=== PATIENT | male | born 1950 | race Caucasian/White ===

== ENCOUNTER → 2016-12-03 | Outpatient (CLI) | payer MEDICARE ==
[2016-12-03 21:02] LABS: ANION GAP 12 (5-19); BLOOD UREA NITROGEN 37 mg/dL (7-20); CALCIUM 9.3 mg/dL (8.4-10.2); CARBON DIOXIDE 36 mmol/L (22-30); CHLORIDE 94 mmol/L (98-107); CREATININE RESULT 1.67 mg/dL (0.52-1.25); GLUCOSE 121 mg/dL (75-110); SODIUM 141.8 mmol/L (137-145)
[2016-12-03 21:24] LABS: POTASSIUM 4.4 mmol/L (3.6-5.0)
== END ==
LOC: LAB 20:33
PROVIDERS: ATTEND Physician Assistant Medical
DX: E87.6 Hypokalemia (principal)
CPT/HCPCS: 36415; 80048; 80053

== ENCOUNTER → 2018-04-12 | Outpatient (CLI) | payer MEDICARE, OTHER ==
--- NOTE | 2018-04-12 16:16 | RADIOLOGY REPORT (SQ) ---
EXAM DESCRIPTION: MRA NECK WITHOUT COMPLETED DATE/TIME: 04/12/2018 3:44 pm REASON FOR STUDY: OCCLUSION AND STENOSIS OF LEFT CAROTID ARTERY I65.22 OCCLUSION AND STENOSIS OF LE FT CAROTID ARTERY COMPARISON: CT brain 07/23/2015 TECHNIQUE: Axial 2-D volume acquisition imaging through the extracranial carotid and vertebral arter ies with reformatting using 3-D MIPS. LIMITATIONS: Mild motion artifact FINDINGS: Flow is identified in the aortic arch, right brachiocephalic artery, right common carotid artery, right carotid bifurcation, right cervical internal carotid artery without evidence of flow si gnificant stenosis. There is flow in the right ICA at the skullbase and paraclinoid regions. Intrac ranial circulation not completely demonstrated. On the left side, there is flow signal in the common carotid artery up to the carotid bifurcation. A t the bifurcation, there is a short segment of flow signal dropout of the proximal left ICA, and limi michael flow signal throughout the remainder of the left cervical ICA and ICA at the skullbase. This sug gests greater than 80% stenosis proximal left ICA at the carotid bifurcation, with decreased flow in the left cervical and skullbase ICA. Right vertebral artery demonstrates flow from its origin at the subclavian artery through the cervica l vertebral artery and right distal intracranial vertebral artery/basilar artery. No focal stenosis. On the left side, no flow is identified in the proximal vertebral artery or throughout the cervical l eft vertebral artery. At the foramen magnum, flow signal is identified in the left vertebral artery likely retrograde from right vertebral artery flow. IMPRESSION: 80+ percent stenosis proximal left ICA at the carotid bifurcation is suggested by short segment of flow dropout. Correlation with carotid Doppler could be useful Left vertebral artery likely occluded at its origin with retrograde flow at the level of the foramen magnum. COMMENT: Quality ID #[id number]: Measurements of distal internal carotid diameter were used as the denomin ator for stenosis measurement. TECHNICAL DOCUMENTATION: JOB ID: [id number] [employer]- All Rights Reserved Reading location - IP/workstation name: [email or web address]
== END ==
LOC: RAD 14:40
PROVIDERS: ATTEND Physician Assistant Medical
DX: I65.22 Occlusion and stenosis of left carotid artery (principal)
CPT/HCPCS: 70547

== ENCOUNTER 2018-05-25 05:13 | Emergency (ER) | payer MEDICARE, OTHER ==
[2018-05-25] MEDS ORDERED: IPRATROPIUM/ALBUTEROL 0.5-2.5 MG/3 ML AMPUL NEB ONE (05:33)
--- NOTE | 2018-05-25 05:43 | ER Document Report ---
ED Respiratory Problem - General Chief Complaint: Shortness Of Breath Stated Complaint: DIFFICULTY BREATHING Time Seen by Provider: 05/25/18 05:31 Notes: Patient is a 67-year-old male presenting to the emergency room via EMS for shortness of breath. Patient is morbidly obese, walks around the house with a walker. Patient states he tripped on his walker and fell to the ground. Patient states the act of getting up off the floor made him short of breath and 911 was called. Patient denies chest pain, URI symptoms, fever, abdominal pain , vomiting. Patient states he had a left carotid stent placed on 05/19/2018. Patient states Thursday after that surgery he started with episodes of loose stool. Patient states he called [facility] to inform them of these loose stools, they informed him to call his primary care provider. Patient states he called his primary care provider who stated he may have an infection. And patient made an appointment to follow-up in the office. Patient denies weakness, dizziness, lightheadedness. States he just tripped over his walker. EMS gave 2 DuoNeb treatments and 125 mg of Solu-Medrol IV. EMS stated room air pulse ox was 94% upon arrival. Patient is currently on a DuoNeb treatment, SPO2 100%, respiratory rate of 18. Patient is talking in full sentences. Past medical history: COPD, hypertension, diabetes, sciatic nerve pain right. states sciatic nerve on the right side has decreased patient sensation in the right foot. This is why he walks around the house with a walker. Medications: Glipizide, baclofen, albuterol, OxyContin, Percocet, gabapentin, Lasix, lisinopril, metoprolol, Plavix, atorvastatin, nitroglycerin, Symbicort Allergies: Morphine, penicillin, bees TRAVEL OUTSIDE OF THE [place] IN LAST 30 DAYS: No - Related Data Allergies/Adverse Reactions: morphine [Morphine] Allergy (Verified 01/23/18 01:04) Penicillins Allergy (Verified 01/23/18 01:04) bee pollen Adverse Reaction (Verified 01/23/18 01:04) Past Medical History - General Information source: Patient - Social History Smoking Status: Former Smoker Lives with: Family Family History: Reviewed & Not Pertinent - Past Medical History Cardiac Medical History: Reports: Hx Heart Attack, Hx Hypercholesterolemia, Hx Hypertension Pulmonary Medical History: Reports: Hx COPD Endocrine Medical History: Reports: Hx Diabetes Mellitus Type 2 Renal/ Medical History: Denies: Hx Peritoneal Dialysis Musculoskeletal Medical History: Reports Hx Arthritis Psychiatric Medical History: Reports: Hx Depression Past Surgical History: Reports: Hx Appendectomy, Hx Cardiac Catheterization, Hx Cardiac Surgery - aoritic repair, bypass, Hx Orthopedic Surgery - back sx x7 Review of Systems - Review of Systems Constitutional: See HPI EENT: See HPI Cardiovascular: See HPI Respiratory: See HPI Gastrointestinal: See HPI Genitourinary: No symptoms reported Male Genitourinary: No symptoms reported Musculoskeletal: No symptoms reported Skin: No symptoms reported Hematologic/Lymphatic: No symptoms reported Neurological/Psychological: No symptoms reported Physical Exam - Vital signs Vitals: Pulse Ox 98 05/25/18 05:45 - Notes Notes: GENERAL: Alert, interacts well. No acute distress. Morbidly obese HEAD: Normocephalic, atraumatic. EYES: Pupils equal, round, and reactive to light. Extraocular movements intact. ENT: Oral mucosa moist, tongue midline. NECK: Full range of motion. Supple. Trachea midline. LUNGS: Diminished with scant expiratory wheezes all partida, No rales, or rhonchi. No respiratory distress. Speaking in full sentences. HEART: Regular rate and rhythm. No murmur ABDOMEN: Soft, non-tender. Non-distended. Bowel sounds present in all 4 quadrants. EXTREMITIES: Moves all 4 extremities spontaneously. No edema, normal radial and dorsalis pedis pulses bilaterally. No cyanosis. Strength 5 out of 5 bilateral upper extremities. Strength 1 out of 5 right lower extremity. Strength 5 out of 5 in left lower extremity. According to weakness in the right lower extremity is normal due to sciatic nerve pain. BACK: no cervical, thoracic, lumbar midline tenderness. NEUROLOGICAL: Alert and oriented x3. Normal speech. cranial nerves II through XII grossly intact. PSYCH: Normal affect, normal mood. SKIN: Warm, dry, normal turgor. No rashes or lesions noted. Course - Re-evaluation Re-evalutation: 05/25/18 06:53 Discussed with patient and at length about need for admission. Discussed chest x-ray results, leukocytosis and CMP results. Discussed kidney function at length with patient and . Patient adamantly refuses admission. Patient' s states she will not get an argument with him if he does not want to be admitted then he will not stay. Patient agreed to signing an AMA form. Told the patient by signing this form I am not responsible if he leaves this emergency room and dies. Patient verbalizes understanding. Patient signed AMA with myself and Jada WHITLEY in the room. Discussed case with Dr. Montaño who suggests IV Lasix and potassium replacement in the emergency department. Patient agrees to IV Lasix. States he does not want to be here if other treatments are going to take a long time. Discussed oral potassium replacements. Patient agrees to oral potassium replacements. Patient's verbalized that she will call the patient's primary care provider this morning. States they have also reached out to Dr. Craig who is the patient's scale and skip car operator to see if they can move his appointment up. Patient states he has an appointment with Dr. Craig the beginning of June. I again reiterated the fact that I feel the patient should be admitted to the hospital. Patient continues to decline admission. Patient is conscious alert and oriented x4. Patient's is also in the room. Patient's states she will bring the patient back to the hospital or call 911 should he start having shortness of breath again, develops chest pain, or any other worsening symptoms. Patient was unable to produce a stool sample in the emergency department. Discussed sending patient home with stool collection kit. Again states she will call the patient's primary care provider this morning, Dr. Pendleton. - Vital Signs Vital signs: Temp Pulse Resp BP Pulse Ox 98 05/25/18 05:45 - Laboratory Result Diagrams: 05/25/18 05:30 05/25/18 05:30 Laboratory results interpreted by me: 05/25/18 05/25/18 05/25/18 05:30 05:30 05:30 WBC 13.1 H RBC 3.39 L Hgb 10.5 L Hct 31.4 L RDW 15.5 H Band Neutrophils % 8 H Abs Neuts (Manual) 9.6 H Abs Monocytes (Manual) 1.6 H Sodium 131.8 L Potassium 3.5 L Chloride 93 L BUN 70 H Creatinine 2.51 H Est GFR ( Amer) 31 L Est GFR (Non-Af Amer) 26 L Glucose 187 H Direct Bilirubin 0.6 H ALT 19 L NT-Pro-B Natriuret Pep 2420 H Albumin 3.3 L Discharge - Discharge Clinical Impression: COPD exacerbation, Morbid obesity, Generalized weakness, Hypokalemia Congestive heart failure (CHF) Qualifiers: Heart failure type: unspecified Heart failure chronicity: unspecified Qualified Code(s): I50.9 - Heart failure, unspecified Condition: Fair Disposition: AGAINST MEDICAL ADVICE Instructions: Chronic Obstructive Lung Disease ([facility]) Additional Instructions: As we discussed I highly suggest that you stay in the emergency room for admission. You should make sure to follow-up with your primary care physician and your scale and skip car operator in the next 12-24 hours. Please return to the emergency room for returning shortness of breath, start of chest pain, or any other concerning symptoms. Referrals: NELY CRAIG MD [Primary Care Provider] - Follow up as needed
[2018-05-25 05:45] LABS: HEMATOCRIT 31.4 % (37.9-51.0); HEMOGLOBIN 10.5 g/dL (13.5-17.0); MEAN CORPUSCULAR HEMOGLOBIN 30.8 pg (27.0-33.4); MEAN CORPUSCULAR HGB CONC 33.3 g/dL (32.0-36.0); MEAN CORPUSCULAR VOLUME 92 fl (80-97); PLATELET COUNT 295 10^3/uL (150-450); RED BLOOD COUNT 3.39 10^6/uL (4.35-5.55); RED CELL DISTRIBUTION WIDTH 15.5 % (11.5-14.0); WHITE BLOOD COUNT 13.1 10^3/uL (4.0-10.5)
[2018-05-25 05:57] LABS: ALANINE AMINOTRANSFERASE 19 U/L (21-72); ALBUMIN 3.3 g/dL (3.5-5.0); ALKALINE PHOSPHATASE 73 U/L (38-126); ANION GAP 15 (5-19); ASPARTATE AMINO TRANSFERASE 29 U/L (17-59); BILIRUBIN,DIRECT 0.6 mg/dL (0.0-0.4); BLOOD UREA NITROGEN 70 mg/dL (7-20); CALCIUM 8.8 mg/dL (8.4-10.2); CARBON DIOXIDE 24 mmol/L (22-30); CHLORIDE 93 mmol/L (98-107); GLUCOSE 187 mg/dL (75-110); POTASSIUM 3.5 mmol/L (3.6-5.0); SODIUM 131.8 mmol/L (137-145); TOTAL PROTEIN 6.9 g/dL (6.3-8.2)
[2018-05-25 06:03] LABS: ABSOLUTE LYMPHOCYTES# (MANUAL) 1.8 10^3/uL (0.5-4.7); ABSOLUTE MONOCYTES # (MANUAL) 1.6 10^3/uL (0.1-1.4); ABSOLUTE NEUTROPHILS# (MANUAL) 9.6 10^3/uL (1.7-8.2); BAND NEUTROPHILS % (MANUAL) 8 % (3-5); BASOPHILS % (MANUAL) 1 % (0-2); EOSINOPHILS % (MANUAL) 0 % (0-6); LYMPHOCYTES % (MANUAL) 14 % (13-45); MONOCYTES % (MANUAL) 12 % (3-13); SEGMENTED NEUTROPHILS % (MAN) 65 % (42-78); TOTAL CELLS COUNTED 100
[2018-05-25 06:06] LABS: ANISOCYTOSIS SLIGHT; PLATELET COMMENT ADEQUATE; POLYCHROMASIA SLIGHT; TOXIC GRANULATION SLIGHT
--- NOTE | 2018-05-25 06:18 | RADIOLOGY REPORT (SQ) ---
CLINICAL HISTORY: SOB COMPARISON: None. TECHNIQUE: XR CHEST 1 VIEW 05/25/2018 5:33 AM CDT FINDINGS: Cardiac silhouette is enlarged. Lungs are clear without consolidation, atelectasis, mass or edema. There is small pleural effusions. There is no pneumothorax. There are no acute osseous findings. IMPRESSION: Bilateral pleural effusions
[2018-05-25 06:20] LABS: CREATINE KINASE MB 2.17 ng/mL (<4.55); TROPONIN I 0.031 ng/mL
[2018-05-25] MEDS ORDERED: FUROSEMIDE INJ/PF 40 MG/4 ML SDV IV ONE (06:59)
[2018-05-25] MEDS ORDERED: POTASSIUM CHLORIDE 10 MEQ CAPSULE.ER PO ONE (06:59)
[2018-05-25 07:37] VITALS: BP 119/32
--- NOTE | 2018-05-25 08:25 | EKG REPORT ---
SEVERITY:- ABNORMAL ECG - SINUS RHYTHM ATRIAL PREMATURE COMPLEX NONSPECIFIC INTRAVENTRICULAR CONDUCTION DELAY : Confirmed by: Johan Holland 25-May-2018 08:24:34
== END 2018-05-25 07:37 | disposition left against medical advice (07) ==
LOC: ER 05:13
DX: J44.1 Chronic obstructive pulmonary disease with (acute) exacerbation (principal); I11.0 Hypertensive heart disease with heart failure; I50.9 Heart failure, unspecified; E66.01 Morbid (severe) obesity due to excess calories; E87.6 Hypokalemia; M54.31 Sciatica, right side; R53.1 Weakness; R19.4 Change in bowel habit; E11.9 Type 2 diabetes mellitus without complications; Z79.891 Long term (current) use of opiate analgesic; Z79.899 Other long term (current) drug therapy; Z79.02 Long term (current) use of antithrombotics/antiplatelets; Z79.51 Long term (current) use of inhaled steroids; Z79.84 Long term (current) use of oral hypoglycemic drugs; Z88.5 Allergy status to narcotic agent; Z88.0 Allergy status to penicillin; Z91.030 Bee allergy status; Z87.891 Personal history of nicotine dependence; Z53.20 Procedure and treatment not carried out because of patient's decision for unspecified reasons
CPT/HCPCS: 93005; 94640; 99285; 96374; 36415; 82553; 82550; 85025; 80053; 84484; 83880; 71045; 93010; J1940; A9270 ×2; J7620

== ENCOUNTER 2018-05-29 13:17 | Emergency (ER) | payer MEDICARE, OTHER ==
[2018-05-29] MEDS ORDERED: FENTANYL CITRATE INJ/PF 100 MCG/2 ML AMPUL IV ONE (13:56)
[2018-05-29] MEDS ORDERED: NORMAL SALINE 1000 ML 1,000 ML IV ONE ×3 (13:56→18:42)
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
--- NOTE | 2018-05-29 14:23 | EKG REPORT ---
SEVERITY:- ABNORMAL ECG - SINUS TACHYCARDIA WITH APCs LEFT AXIS DEVIATION NONSPECIFIC T ABNORMALITIES, LATERAL LEADS BORDERLINE PROLONGED QT INTERVAL : Confirmed by: Johan Holland 29-May-2018 14:23:05
[2018-05-29 14:29] LABS: ABSOLUTE MONOCYTES (AUTO) 0.5 10^3/uL (0.1-1.4); ABSOLUTE NEUT (AUTO) 13.8 10^3/uL (1.7-8.2); BASOPHILS % (AUTO) 0.2 % (0-2); EOSINOPHILS % (AUTO) 0.2 % (0-6); HEMATOCRIT 36.8 % (37.9-51.0); HEMOGLOBIN 12.3 g/dL (13.5-17.0); LYMPHOCYTES % (AUTO) 6.8 % (13-45); MEAN CORPUSCULAR HEMOGLOBIN 30.4 pg (27.0-33.4); MEAN CORPUSCULAR HGB CONC 33.4 g/dL (32.0-36.0); MEAN CORPUSCULAR VOLUME 91 fl (80-97); MONOCYTES % (AUTO) 3.5 % (3-13); PLATELET COUNT 379 10^3/uL (150-450); RED BLOOD COUNT 4.04 10^6/uL (4.35-5.55); RED CELL DISTRIBUTION WIDTH 15.7 % (11.5-14.0); SEGMENTED NEUTROPHILS % (AUTO) 89.3 % (42-78); TOTAL CELLS COUNTED % (AUTO) 100 %; WHITE BLOOD COUNT 15.5 10^3/uL (4.0-10.5)
--- NOTE | 2018-05-29 14:45 | RADIOLOGY REPORT (SQ) ---
EXAM DESCRIPTION: CT ABD/PELVIS NO ORAL OR IV COMPLETED DATE/TIME: 05/29/2018 2:20 pm REASON FOR STUDY: rlq pain COMPARISON: 02/23/2015 TECHNIQUE: CT scan of the abdomen and pelvis performed without intravenous or oral contrast. Images reviewed with lung, soft tissue, and bone windows. Reconstructed coronal and sagittal MPR images revi ewed. All images stored on PACS. All CT scanners at this facility use dose modulation, iterative reconstruction, and/or weight based d osing when appropriate to reduce radiation dose to as low as reasonably achievable (ALARA). [facility]: Dose Right [facility]: CareDose [facility]: Dose Right [facility]: Teradose 4D [facility]: TransMedics RADIATION DOSE: CT Rad equipment meets quality standard of care and radiation dose reduction techniq ues were employed. CTDIvol: 26.4 mGy. DLP: 1497 mGy-cm.mGy. LIMITATIONS: None. FINDINGS: LOWER CHEST: No significant findings. No nodules or infiltrates. NON-CONTRASTED LIVER, SPLEEN, ADRENALS: Evaluation limited by lack of IV contrast. No identified sign ificant masses. PANCREAS: No masses. No peripancreatic inflammatory changes. GALLBLADDER: No identified stones by CT criteria. No inflammatory changes to suggest cholecystitis. RIGHT KIDNEY AND URETER: Atrophic left kidney. No suspicious masses. Assessment limited by lack of I V contrast. No significant calcifications. No hydronephrosis or hydroureter. LEFT KIDNEY AND URETER: No suspicious masses. Assessment limited by lack of IV contrast. No signifi cant calcifications. No hydronephrosis or hydroureter. AORTA AND RETROPERITONEUM: No aneurysm. Mild scattered calcified plaque. No retroperitoneal masses or adenopathy. BOWEL AND PERITONEAL CAVITY: Multiple supraumbilical hernias with the largest having a fascial defect measuring of 4.9 cm containing a short segment of transverse colon and fat. Additional supraumbilic al hernias contain fat. Transverse colon just proximal to the hernia is borderline dilated measuring 6.1 cm in transverse diameter. Ascending colon is nondilated. Colon distal to the hernia is nondil ated. Multiple minimally dilated loops of small bowel, multiple of which contain air-fluid levels. There are multiple foci of air within the anterior abdominal wall extending in to the hernia. No lui e fluid. APPENDIX: Surgically absent. PELVIS, BLADDER, AND ABDOMINAL WALL:No abnormal masses. No free fluid. Bladder normal. BONES: Laminectomies of L4. Degenerative disc disease of the lumbar spine. No acute osseous finding . OTHER: No other significant finding. IMPRESSION: 1. Supraumbilical hernia containing fat and transverse colon. Transverse colon proximal to the herni a is mildly dilated along with multiple minimally dilated loops of small bowel, consistent with obstr uction. 2. Small amount of free intraperitoneal air which extends into the hernia, consistent with perforated viscus. COMMENT: This report was called to BRIANDA NICKERSON DO at14:30 on 05/29/2018. Quality ID # [id number]: Final reports with documentation of one or more dose reduction techniques (e.g., Au tomated exposure control, adjustment of the mA and/or kV according to patient size, use of iterative reconstruction technique) TECHNICAL DOCUMENTATION: JOB ID: [id number] [employer]- All Rights Reserved Reading location - IP/workstation name: [email or web address]
[2018-05-29] MEDS ORDERED: ERTAPENEM SODIUM INJ 1 GM VIAL IV ONE (15:04)
--- NOTE | 2018-05-29 15:54 | RADIOLOGY REPORT (SQ) ---
EXAM DESCRIPTION: CHEST SINGLE VIEW COMPLETED DATE/TIME: 05/29/2018 3:42 pm REASON FOR STUDY: sob COMPARISON: Chest x-ray 05/25/2018. CT abdomen and pelvis 05/29/2018. EXAM PARAMETERS: NUMBER OF VIEWS: One view. TECHNIQUE: Single frontal radiographic view of the chest acquired. RADIATION DOSE: NA LIMITATIONS: None. FINDINGS: LUNGS AND PLEURA: No consolidation, pneumothorax or pleural effusion. MEDIASTINUM AND HILAR STRUCTURES: No masses. Contour normal. HEART AND VASCULAR STRUCTURES: Heart normal in size. Normal vasculature. BONES: No acute findings. HARDWARE: None in the chest. IMPRESSION: NO ACUTE RADIOGRAPHIC FINDING IN THE CHEST. TECHNICAL DOCUMENTATION: JOB ID: [id number] 2010 [employer]- All Rights Reserved Reading location - IP/workstation name: [email or web address]
[2018-05-29 16:09] LABS: INTERNATIONAL RATION (INR) 1.17; PROTHROMBIN TIME 15.5 SEC (11.4-15.4)
[2018-05-29 16:10] LABS: PARTIAL THROMBOPLASTIN TIME 25.8 SEC (23.5-35.8)
[2018-05-29 16:14] LABS: ALANINE AMINOTRANSFERASE 19 U/L (21-72); ALBUMIN 2.9 g/dL (3.5-5.0); ALKALINE PHOSPHATASE 91 U/L (38-126); ANION GAP 18 (5-19); ASPARTATE AMINO TRANSFERASE 15 U/L (17-59); BILIRUBIN,DIRECT 0.4 mg/dL (0.0-0.4); BILIRUBIN,TOTAL 0.9 mg/dL (0.2-1.3); BLOOD UREA NITROGEN 72 mg/dL (7-20); CALCIUM 8.1 mg/dL (8.4-10.2); CARBON DIOXIDE 21 mmol/L (22-30); CHLORIDE 96 mmol/L (98-107); GLUCOSE 196 mg/dL (75-110); POTASSIUM 3.3 mmol/L (3.6-5.0); SODIUM 134.7 mmol/L (137-145); TOTAL PROTEIN 6.3 g/dL (6.3-8.2)
[2018-05-29 16:43] LABS: APPEARANCE,URINE CLEAR; BILIRUBIN,URINE NEGATIVE (NEGATIVE); COLOR,URINE YELLOW; GLUCOSE, URINE NEGATIVE (NEGATIVE); KETONES,URINE NEGATIVE (NEGATIVE); LEUKOCYTE ESTERASE,URINE NEGATIVE (NEGATIVE); NITRITE,URINE NEGATIVE (NEGATIVE); PROTEIN,URINE NEGATIVE (NEGATIVE); URINE SPECIFIC GRAVITY 1.011; UROBILINOGEN,URINE NEGATIVE mg/dL (<2.0)
[2018-05-29] MEDS ORDERED: ACETAMINOPHEN 650 MG SUPP.RECT PR ONE ×2 (18:55→18:59)
[2018-05-29] MEDS ORDERED: ACETAMINOPHEN 325 MG SUPP.RECT PR ONE (18:55)
[2018-05-29 19:42] VITALS: BP 137/49
== END 2018-05-29 19:04 | disposition short-term general hospital (02) ==
LOC: ER 13:17
DX: K63.1 Perforation of intestine (nontraumatic) (principal); R10.32 Left lower quadrant pain; I13.0 Hypertensive heart and chronic kidney disease with heart failure and stage 1 through stage 4 chronic kidney disease, or unspecified chronic kidney disease; I50.9 Heart failure, unspecified; N18.9 Chronic kidney disease, unspecified; E11.22 Type 2 diabetes mellitus with diabetic chronic kidney disease; E66.01 Morbid (severe) obesity due to excess calories; J44.9 Chronic obstructive pulmonary disease, unspecified; R19.7 Diarrhea, unspecified; R10.11 Right upper quadrant pain; R10.31 Right lower quadrant pain; R00.0 Tachycardia, unspecified; K43.9 Ventral hernia without obstruction or gangrene; F17.210 Nicotine dependence, cigarettes, uncomplicated; Z95.5 Presence of coronary angioplasty implant and graft; Z90.49 Acquired absence of other specified parts of digestive tract
CPT/HCPCS: 93005; 99291; 96361; 51702; 96375; 96365; 36415; 87040; 83690; 85025; 85610; 85730; 80053; 81001; 84484; 83605; 71045; 74176; 93010; A9270; J3010; J1335; J7030

== ENCOUNTER 2018-06-06 13:34 | Emergency (ER) | payer MEDICARE, OTHER ==
[2018-06-06] MEDS ORDERED: PROPOFOL 1,000 MG/100 ML INFUS..BTL IV PRN (13:42)
[2018-06-06] MEDS ORDERED: DEXTROSE 5%-WATER 250 ML with NOREPINEPHRINE BITARTRATE 4 MG IV PRN ×2 (13:42)
[2018-06-06] MEDS ORDERED: NOREPINEPHRINE BITARTRATE INJ/PF 4 MG/4 ML SDV IV ONE (13:49)
[2018-06-06 15:30] VITALS: BP 111/37
--- NOTE | 2018-06-06 15:58 | RADIOLOGY REPORT (SQ) ---
EXAM DESCRIPTION: CHEST SINGLE VIEW COMPLETED DATE/TIME: 06/06/2018 2:02 pm REASON FOR STUDY: cardiac arrest COMPARISON: None. EXAM PARAMETERS: NUMBER OF VIEWS: One view. TECHNIQUE: Single frontal radiographic view of the chest acquired. RADIATION DOSE: NA LIMITATIONS: None. FINDINGS: LUNGS AND PLEURA: Bilateral increased interstitial and patchy airspace opacities are pres ent, basilar predominance. No pneumothorax. Small bilateral pleural effusions. MEDIASTINUM AND HILAR STRUCTURES: Stable. HEART AND VASCULAR STRUCTURES: Stable. BONES: No acute findings. HARDWARE: Endotracheal tube tip overlies the upper trachea, approximately 10 cm above the level of th e tutu. OTHER: No other significant finding. IMPRESSION: Endotracheal tube tip overlies the upper trachea, approximately 10 cm above the level of the tutu. Bilateral increased interstitial and patchy airspace opacities are present, basilar pre dominance. Small bilateral pleural effusions. TECHNICAL DOCUMENTATION: JOB ID: [id number] 2010 [employer]- All Rights Reserved Reading location - IP/workstation name: [email or web address]
--- NOTE | 2018-06-06 17:37 | ER Document Report ---
ED Resuscitation - General Chief Complaint: Cardiac Arrest Stated Complaint: CHEST PAIN Time Seen by Provider: 06/06/18 13:40 Mode of Arrival: Medic Information source: Emergency Med Personnel TRAVEL OUTSIDE OF THE [place] IN LAST 30 DAYS: No - HPI Witnessed arrest: Yes Bystander CPR?: Yes Down-time before ACLS: 00:00 Onset: Just prior to arrival - 67-year-old man with multiple medical comorbidities but an unknown exact past medical history that presented from home after having called for dyspnea and abdominal pain after an abdominal surgery that he had for unclear reasons. While on scene EMS noted that this patient began to appear blue, was sitting on the side of the bed and subsequently became unresponsive at which time at which time they initiated bystander CPR he received at least 2 rounds of epinephrine with a return of spontaneous circulation as well as an intubation performed in the field and the initiation of the levo fed infusion through an intraosseous line. - Related Data Allergies/Adverse Reactions: morphine [Morphine] Allergy (Verified 01/23/18 01:04) Penicillins Allergy (Verified 01/23/18 01:04) bee pollen Adverse Reaction (Verified 01/23/18 01:04) Past Medical History - General Information source: Emergency Med Personnel Cannot obtain history due to: Intubated - Social History Smoking Status: Unknown if Ever Smoked Family History: Reviewed & Not Pertinent - Past Medical History Cardiac Medical History: Reports: Hx Heart Attack, Hx Hypercholesterolemia, Hx Hypertension Pulmonary Medical History: Reports: Hx COPD Endocrine Medical History: Reports: Hx Diabetes Mellitus Type 2 Renal/ Medical History: Denies: Hx Peritoneal Dialysis Musculoskeletal Medical History: Reports Hx Arthritis Psychiatric Medical History: Reports: Hx Depression Past Surgical History: Reports: Hx Appendectomy, Hx Cardiac Catheterization, Hx Cardiac Surgery - aoritic repair, bypass, Hx Orthopedic Surgery - back sx x7 Review of Systems - Review of Systems -: Yes ROS unobtainable due to patient's medical condition Physical Exam - Vital signs Vitals: Resp Pulse Ox 25 H 80 L 06/06/18 13:35 06/06/18 13:35 - General General appearance: Unresponsive In distress: None - HEENT Head: Normocephalic Eyes: Normal Conjunctiva: Normal Cornea: Normal Extraocular movements intact: No Pupils: Dilated - Respiratory Respiratory status: Other - Intubated Chest status: Ecchymosis Breath sounds: Decreased air movement Chest palpation: Normal - Cardiovascular Rhythm: Irregularly irregular Heart sounds: Normal auscultation Murmur: No - Abdominal Inspection: Other - Large midline incision stapled closed from the xiphoid to the belt line - Back Back: Normal - Extremities General upper extremity: Normal inspection, Nontender, Normal strength, Normal temperature General lower extremity: Normal inspection, Nontender, Normal strength, Normal temperature - Neurological Neuro grossly intact: No Cognition: Other - Unresponsive [place] Coma Scale Eye Opening: None Inoc[place] Coma Scale Verbal: None - Psychological Associated symptoms: Normal affect Course - Re-evaluation Re-evalutation: 06/06/18 17:38 67-year-old man that presented for evaluation of a cardiac arrest that was witnessed on scene. Immediately this patient appears as if he has had a recent ex lap performed with a large midline incision scar in his abdomen that still has rocky in place. It is noted that this patient has been here previously for multiple medical issues including but not limited to strokes and recurrent decisions to leave the hospital. He presented on levo fed, he was receiving that through an intraosseous line. He was already intubated upon arrival made determination to take this patient and obtain large volume excess with bilateral large gauge IVs. During an attempt to initiate resuscitation patient again became pulseless, subsequently CPR was initiated his initial rhythm on converting to a pulseless rhythm was asystolic. At this time he was still receiving an infusion of Levophed. He was given a dose of epinephrine IV while initiation of compressions continued , at which time after 2 minutes of compressions a pulse and rhythm check was taken it was noted that this patient was in ventricular tachycardia at which time he was shocked with 200 J and attempted defibrillation, following defibrillation compressions were resumed and the patient remained pulseless. He was administered 250 of amiodarone through an intraosseous line because of the concern for his ventricular arrhythmia. Following subsequent pulse check patient was noted to be in a wide-complex bradycardia at which time the determination was made to attempt pacing, began pacing for bradycardia at which time he did have a return of spontaneous circulation. His pulse was palpable in the femoral, during this time initiated administration of fluids, obtained access again patient had another cardiac arrest at which time he became pulseless as he had a wide-complex bradycardia preceding this administered calcium gluconate for concern of potential hyperkalemia. Because of the recurrent nature of his cardiac arrest and now fixed and dilated pupils with what appears to be multiple medical comorbidities I did make determination to speak to family well code was being performed led by senior nursing leadership. Spoke to the patient's and daughter informing them of his recurrent cardiac arrest and difficulty in obtaining any response to therapy. The noted that he would not want to be a live this way and while she was upset about letting him go she and her daughter noted that that was what he would want. Returned to resuscitation bay where compressions were in progress, the patient had had intermittent transitions of his rhythm from wide-complex ventricular bradycardia also to ventricular fibrillation and tachycardia. All of these rhythms were pulseless. Discontinue resuscitative efforts patient was pulseless, demonstrated no appreciable spontaneous breaths, made determination to cease resuscitative efforts at that time. Patient subsequently passed peacefully. He was allowed to stay in the room at which time his family visited with him briefly. - Vital Signs Vital signs: Temp Pulse Resp BP Pulse Ox 48 H 111/37 L 44 L 06/06/18 14:23 06/06/18 14:19 06/06/18 14:17 Procedures - Ultrasound/Bedside Ultrasound/Bedside Ultrasound: Other - Cardiac ultrasound at the bedside demonstrates no obvious effusion, no obvious dilated right ventricle or septal bowing, does have ventricular quiver - Additional Procedures Cardioversion/Defib Additional Procedures: Cardioversion/defib, External pacing - Defibrillated patient at 200 J, paced patient externally at 70 J, subsequently increased pacing to 100 J with poor response Critical Care Note - Critical Care Note Total time excluding time spent on procedures (mins): 60 Discharge - Discharge Clinical Impression: Cardiac arrest, Bradycardia, Chest pain, Hypoxia Disposition: Referrals: RJ MCRAE MD [Primary Care Provider] - Follow up as needed
[2018-06-06] MEDS ORDERED: AMIODARONE HCL INJ 150 MG/3 ML VIAL IV ONE (20:29)
[2018-06-06] MEDS ORDERED: EPINEPHRINE INJ 1 MG/10 ML DISP.SYRIN ONE (20:29)
[2018-06-06] MEDS ORDERED: CALCIUM GLUCONATE 1000 MG/10 ML INJ IV ONE (20:29)
--- NOTE | 2018-06-08 07:33 | EKG REPORT ---
SEVERITY:- ABNORMAL ECG - ACCELERATED JUNCTIONAL ESCAPE RHYTHM LAD, CONSIDER LAFB OR INFERIOR INFARCT ABNRM R PROG, CONSIDER ASMI OR LEAD PLACEMENT : Confirmed by: Uriel Haynes MD 08-Jun-2018 07:32:39
== END 2018-06-06 15:30 | disposition expired ==
LOC: ER 13:34
DX: I46.9 Cardiac arrest, cause unspecified (principal); R00.1 Bradycardia, unspecified; R09.02 Hypoxemia; R07.9 Chest pain, unspecified; R06.00 Dyspnea, unspecified; R10.9 Unspecified abdominal pain; E78.00 Pure hypercholesterolemia, unspecified; I10 Essential (primary) hypertension; J44.9 Chronic obstructive pulmonary disease, unspecified; E11.9 Type 2 diabetes mellitus without complications; Z95.1 Presence of aortocoronary bypass graft; Z88.6 Allergy status to analgesic agent; Z88.0 Allergy status to penicillin; I25.2 Old myocardial infarction
CPT/HCPCS: 93005; 99291; 92950; 96374; 71045; 94660; 93010; J0610; J0171; J0282